=== PATIENT | female | born 2000 | race Caucasian/White ===

== ENCOUNTER 2022-07-03 11:40 | Emergency (ER) | payer OTHER ==
[~2022-07-03] VITALS: Ht 162.6 cm; Wt 72.6 kg
--- NOTE | 2022-07-03 12:43 | NUR ---
URINE SAMPLE PROVIDED BY YANET
[2022-07-03] MEDS ORDERED: AMOX-430 PO (13:07)
[2022-07-03] MEDS ORDERED: IBUP-1955 PO (13:07)
--- NOTE | 2022-07-03 13:17 | NUR ---
Patient discharged to home in stable condition. Written and verbal after care instructions given. Patient verbalizes understanding of instruction.
[2022-07-03 13:24] VITALS: BP 115/69
== END 2022-07-03 13:25 | disposition home or self-care (01) ==
LOC: ER 11:44
DX: H65.192 Other acute nonsuppurative otitis media, left ear (principal); Z98.890 Other specified postprocedural states; Z79.899 Other long term (current) drug therapy; Z60.2 Problems related to living alone